=== PATIENT | female | born 1975 | race Hispanic/Latino ===

== ENCOUNTER 2018-05-06 20:52 | Observation (INO) | payer SELFPAY ==
[2018-05-06 21:51] LABS: Hemoglobin 5.3 g/dL (12.0-16.0); Mean Corpuscular HGB CONC 31.5 g/dL (32.0-36.0); Mean Corpuscular Hemoglobin 22.5 pg (27.0-31.0); Mean Corpuscular Volume 71.4 fL (78.0-98.0); Mean Platelet Volume 5.8 fL (7.4-10.4); Platelet Count 245 thou/uL (130-400); RBC Distribution Width 25.3 % (11.5-14.5); Red Blood Cell (RBC) Count 2.35 mill/uL (4.20-5.40); White Blood Cell (WBC) Count 4.9 thou/uL (4.8-10.8)
[2018-05-06 22:01] LABS: #Eosinphils 0.1 thou/uL (0.0-0.7); #Lymphocytes 1.4 thou/uL (1.20-3.40); #Monocytes 0.3 thou/uL (0.11-0.59); #Neutrophils 3.1 thou/uL (1.40-6.50); %Basophils 0.9 % (0.0-1.0); %Eosinophils 1.6 % (0.0-10.0); %Lymphocytes 29.1 % (21.0-51.0); %Monocytes 5.8 % (0.0-10.0); %Neutrophils 62.6 % (42.0-75.0); Anisocytosis MODERATE=16-30 cells (100X) (0-5/hpf); Hypochromia SLIGHT = 6-15 cells (100X) (0-5/hpf); MDiff Complete? YES; Microcytosis SLIGHT = 6-15 cells (100X) (0-5/hpf)
--- NOTE | 2018-05-06 23:12 | ULT ---
PELVIC SONOGRAM TRANSABDOMINAL AND TRANSVAGINAL IMAGING WITH DUPLEX EVALUATION: History: Pelvic pain. Bleeding. FINDINGS: Urinary bladder is incompletely distended. Uterus has a very heterogeneous echotexture and measures u p to 10.2 cm. Small hypoechoic fibroids are apparent within the fundus. Nabothian cysts at the cervix . Physiologic amount of free fluid is apparent within the cul-de-sac. Endometrium is 1.1 cm. Right ovary is 2.4 cm and left measures up to 7.4 cm with cysts. Good color and spectral doppler flow . Cysts involving the left ovary measure up to 3.5 cm. IMPRESSION: 1. Moderate fibroid involving the uterus. 2. Thickened endometrium of 1.1 cm. 3. Multiple left ovarian cysts measuring up to 3.4 cm. POS: [facility]
[2018-05-06] MEDS ORDERED: medroxyPROGESTERone Acetate 5 MG TAB PO SCH (23:30)
[2018-05-07] MEDS ORDERED: Acetaminophen 325 MG TAB PO PRN (00:50)
[2018-05-07] MEDS ORDERED: HYDROcodone/Acetaminophen 5/325 mg Tablet PO PRN ×2 (00:50)
[2018-05-07] MEDS ORDERED: Ondansetron HCl/PF 4 MG/2 ML Vial IVP PRN (00:50)
[2018-05-07] MEDS ORDERED: Ondansetron ODT 4 MG TAB SL PRN (00:50)
[2018-05-07] MEDS: Sodium Chloride 0.9% 1,000 ML IV SCH ×2 (01:12→10:50)
[2018-05-07] MEDS ORDERED: Sodium Chloride 0.9% 10 ML ONE ×3 (01:27→23:28)
--- NOTE | 2018-05-07 04:37 | HP ---
DATE OF ADMISSION: 05/07/2018 ADMITTING PHYSICIAN: Joel Mathis MD CHIEF COMPLAINT: Shortness of breath, one-year history of heavy menstrual cycles. HISTORY OF PRESENT ILLNESS: Ms. Carlton is a 42-year-old Latin-F[place] who presented initially to the [place] ER, complaining of shortness of breath. There, she was found to have hemoglobin of 2.9 and was transferred here. She reports getting 1 unit of blood in the ER there and a second unit upon her transfer here. At the present time, she feels better and her shortness of breath has been resolved. She states that her periods have been heavy over the last year and have become progressive ly so. She reports that her last pelvic exam was 4 years ago. PAST OBSTETRICAL HISTORY: Includes 2 vaginal deliveries and 2 previous sections. PAST MEDICAL HISTORY: Unremarkable. PAST SURGICAL HISTORY: Includes appendectomy and cholecystectomy. CURRENT MEDICATIONS: None. ALLERGIES: No known allergies. SOCIAL HISTORY: She states she drinks beer. She denies smoking. She denies drug use. FAMILY HISTORY: Denies breast or pelvic malignancy in the family. PHYSICAL EXAMINATION: VITAL SIGNS: Currently, her vital signs are 134/73 with a pulse of 63 in the ER. GENERAL: She is in no acute distress and is comfortable. CHEST: Clear to auscultation. CARDIOVASCULAR: Regular rate and rhythm. ABDOMEN: Soft and nontender. There is no guarding or rebound. On pelvic examination, there is a sm all amount of blood in the vault. The cervix is parous and grossly without lesions. On bimanual exa m, her uterus is upper limits of normal size. IMAGING: Ultrasound done tonight shows a 10-cm uterus with areas consistent with fibroids. Her endo metrium is thickened to 1.1 cm. ASSESSMENT: 1. Longstanding history of menorrhagia. 2. Profound anemia. PLAN: Patient will be admitted at this time for observation and 2 more units of packed cells. These have been ordered, but have been delayed due to antibody found at the blood bank. GC and chlamydia probes will be obtained. Once her hemoglobin has been improved, consideration of endometrial biopsy will be made.
[2018-05-07 07:16] LABS: Pregnancy Test - Urine (BHCG) Negative (Negative); Pregu Control Background? CLEAR/WHITE (CLR/WHITE); Pregu Control Bar Appear? YES (CONTROL BAR); Specific Gravity 1.013 (1.002-1.036)
[2018-05-07] MEDS: medroxyPROGESTERone Acetate 5 MG TAB PO SCH ×2 (10:50→20:41)
[2018-05-07] MEDS ORDERED: Acetaminophen 500 MG TAB PO PRN (16:31)
--- NOTE | 2018-05-07 19:35 | PRG ---
DATE OF SERVICE: 05/07/2018 TIME OF SERVICE: 1755 hours. SUBJECTIVE: The patient is resting comfortably. She has no active bleeding. OBJECTIVE: VITAL SIGNS: Temperature is 98.5, pulse 52, respirations 20, blood pressure 131/58. LABORATORY DATA: This morning revealed her hematocrit 21.6 with a hemoglobin of 7.0. This is up fro m 5.3 and 16.7 on admission and hemoglobin of approximately 3 in [place]. She has received 4 unit s of PRBCs. Currently, she is receiving 500 mg of INFeD IV. I discussed with the patient and her sister her condition. The patient is interested in a hysterecto my. However, she is unfunded. I recommended following up with [facility] in [place]. The sister explained that they are going to get the patient into care program in [facility] for hysterectomy and I expressed that I felt that was a really good idea. Because of her low hemoglobin and hematocrit likely nonimmediate access to definitive surgical management. We will go a head and give the patient another unit of PRBCs, we will change to regular diet, and anticipate disch arge home tomorrow morning. Discharge medication will include Provera to take [address] arts bleeding.
[2018-05-08 01:15] LABS: Chlamydia by PCR Not Detected (NotDetected); GC by PCR Not Detected (NotDetected)
--- NOTE | 2018-05-08 07:21 | DIS ---
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 SUMMARY OF HOSPITAL COURSE: Ms. Carlton is a 42-year-old who was transferred in from [place] with s evere acute anemia. Initial hemoglobin in [place] was 2.9. She received a total of 5 units of [place] BCs during this hospitalization. Last hematocrit was 21%, but that was after 4 units. She also rece ived 500 mg of elemental IV via iron dextran transfusion. Ultrasound revealed an enlarged uterus marta t is inhomogeneous in nature consistent with fibroids and adenomyosis. The patient was offered [facility] with follow up at [facility] for an endometrial biopsy and referral to [facility] other social media marketing specialist for funding for a hysterectomy. The patient's family plans to go to [facility] today to get her enrolled into the indigent care program there. We will discharge home on no medication as she has received a large dose of IV iron and is not bleeding currently. Follow up w ill be with [facility] physicians.
[2018-05-08 07:51] VITALS: BP 144/63; TEMP 99
== END 2018-05-08 07:55 | disposition home or self-care (01) ==
LOC: ERS 20:52 → 3SE 05-07 00:36
PROVIDERS: ADMIT Obstetrics & Gynecology; ATTEND Obstetrics & Gynecology
DX: D50.0 Iron deficiency anemia secondary to blood loss (chronic) (principal); N92.0 Excessive and frequent menstruation with regular cycle; D25.9 Leiomyoma of uterus, unspecified
CPT/HCPCS: 36415; 36430; 76856; 81025; 85014; 85018; 85025; 86850; 86870; 86900; 86901; 86922; 87480; 87491; 87510; 87591; 87660; 94760; 96365; 96366; A4216; G0378; J1750; J7050; P9016